=== PATIENT | male | born 1960 | race Caucasian/White ===

== ENCOUNTER 2022-03-06 00:46 | Emergency (ER) | payer OTHER ==
[~2022-03-06] VITALS: Ht 175.3 cm; Wt 84.8 kg
[~2022-03-06 00:46] MED LIST: BENZ100A PO; CEPACOL SORE T1 EACH MM; Loratadine10 MG PO; Prednisone20 MG PO; Prinivil10 MG PO
== END 2022-03-07 03:57 | disposition home or self-care (01) ==
LOC: ER 00:46
DX: S61.011A Laceration without foreign body of right thumb without damage to nail, initial encounter (principal); I10 Essential (primary) hypertension; Z88.0 Allergy status to penicillin; W17.89XA Other fall from one level to another, initial encounter
CPT/HCPCS: 12001; 90471; 90714; 99282-25